=== PATIENT | male | born 1980 | race Caucasian/White ===

== ENCOUNTER 2019-06-30 14:36 | Emergency (ER) | payer OTHER, SELFPAY ==
[2019-06-30 14:42] VITALS: BP 144/76; PULSE 74; RESP 16; TEMP 36.2; O2SAT 99
--- NOTE | 2019-06-30 14:51 | ED.URI ---
HPI - URI/Sore Throat General Chief Complaint: Upper Respiratory Infection Stated Complaint: sore throat/r earache History of Present Illness HPI Narrative: This is a 39 year old male that has had a sore throat for the past week . Patient states that he has had a cough slightly that has went away. Patient denies fever, nausea, shortness of breath Related Data Allergies Allergy/AdvReac Type Severity Reaction Status Date / Time Penicillins Allergy Unknown Rash Verified 05/17/19 10:22 Review of Systems Review of Systems: Narrative: CONSTITUTIONAL: Denies fever, chills, or sweats. EYES: Denies visual changes, redness, or discharge. ENT: Denies rhinorrhea, congestion, positive sore throat, or otalgia. CARDIOVASCULAR:Denies chest pain, palpitations, or edema. RESPIRATORY: Denies cough or dyspnea. GASTROINTESTINAL: Denies abdominal pain, nausea, vomiting, or diarrhea. GENITOURINARY: Denies dysuria or hematuria. SKIN:[Denies rash or itching. MUSCULOSKELETAL:Denies back pain, joint pain, or myalgia. NEUROLOGIC: Denies headache, numbness, or weakness. PSYCHIATRIC:Denies anxiety or depression [facility] Past Medical History Medical History (Updated 06/30/19 @ 15:04 by Dario Wyatt NP) Adhesive capsulitis of right shoulder Muscle spasm of calf Surgical History Surgical History H/O lumpectomy History of appendectomy Social History Social History Smoking status: Never smoker Alcohol intake: current Substance use: unknown Gender identity (if verbalized by the patient): Male Spiritual care concerns: No Comments At time as signature, I have reviewed and agree with nursing past medical, social, surgical and family history. Please see nursing chart for further information. There is no relevant family history pertinent to the presenting complaint. Exam Narrative: Exam Narrative: GENERAL:Well-appearing, well-nourished, and in no acute distress. HEAD:Normocephalic, atraumatic. EYES: PERRLA and EOMI. ENT: Nares clear, no rhinorrhea or epistaxis. Mucous membranes moist. Pharyngeal erythema postnasal drainage copious secretions clear enlarged tonsils NECK: Supple. CHEST: Clear to auscultation. No respiratory distress. HEART: Regular rate and rhythm. No murmur heard. Normal peripheral pulses. ABDOMEN: Soft, nontender, nondistended, normal active bowel sounds. EXTREMITIES: Normal range of motion. No edema. SKIN: Warm, dry, no rash. NEURO: No focal deficits. Alert and oriented x3. Course Vital Signs Vital signs: Vital Signs Temperature 97.1 F L 06/30/19 14:42 Pulse Rate 74 06/30/19 14:42 Respiratory Rate 16 06/30/19 14:42 Blood Pressure 144/76 H 06/30/19 14:42 Pulse Oximetry 99 06/30/19 14:42 Temperature 97.1 F L 06/30/19 14:42 Pulse Rate 74 06/30/19 14:42 Respiratory Rate 16 06/30/19 14:42 Blood Pressure 144/76 H 06/30/19 14:42 Pulse Oximetry 99 06/30/19 14:42 Discharge Plan Discharge Clinical Impression: Acute tonsillitis Patient Disposition: Home, Self-Care Condition: Stable Instructions: Antibiotic Form, Tonsillitis (ED) Additional Instructions: Your strep test today was negative. A throat culture will be sent to the laboratory for further testing. IF the test is positive, you will receive a phone call within 48 hours and an appropriate antibiotic will be initiated at that time. You will not receive a phone call if the test is negative. Until the throat culture proves otherwise, you should proceed with treating this is as a viral pharyngitis. Salt water gargles may alleviate some of your throat discomfort. Take Tylenol and/or ibuprofen per the package instructions for pain/fever. Go to the ER if your symptoms become worse of if ANY new symptoms develop Prescriptions: New cefdinir 300 mg capsule 300 mg PO Q12H 10 Days Qty: 20 RF
== END 2019-06-30 15:08 | disposition home or self-care (01) ==
PROVIDERS: Emergency Provider Nurse Practitioner Family; PCP Emergency Medicine
DX: J03.90 Acute tonsillitis, unspecified (principal)
CPT/HCPCS: 87081; 87880; 99213; G0463

== ENCOUNTER 2019-12-28 07:49 | Emergency (ER) | payer OTHER, SELFPAY ==
--- NOTE | ~2019-12-28 | XR_ITS ---
EXAMINATION: XR femur RT min 2V, XR hip RT 2V w AP pelvis DATE: 12/28/2019 09:05 INDICATION: Right hip and leg pain. TECHNIQUE: Line 1. AP view of the pelvis and AP and frog-leg lateral views of the right hip were obtained. 2. Overlapping proximal and distal, AP and lateral views of the right femur were obtained. COMPARISON: None FINDINGS: Alignment is normal in the pelvis, right hip and knee. No fracture or suspected avascular necrosis. Joint spaces are normal. Incidental bone island at the posterolateral distal metaphysis of the right femur No knee joint effusion. Soft tissues are unremarkable. IMPRESSION: 1. Essentially negative pelvis, right hip and femur radiographs. Reviewed, dictated and finalized at location A. IMPRESSION: 1. Essentially negative pelvis, right hip and femur radiographs.
--- NOTE | ~2019-12-28 | XR_ITS ---
EXAMINATION: XR ankle RT min 3V, XR foot RT min 3V DATE: 12/28/2019 09:05 INDICATION: Right foot and ankle pain and swelling TECHNIQUE: 1. Anteroposterior, mortise, additional oblique and lateral view of the right ankle were obtained. 2. Dorsoplantar, two oblique and lateral views of the right foot were obtained. COMPARISON: None. FINDINGS: Alignment of the foot and ankle is normal. No fracture or osteochondral lesion. Small Achilles calcan eal spur. 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 No cortical erosions. No ank le joint effusion. The soft tissues are unremarkable. IMPRESSION: 1. No acute osseous abnormality at the right foot or ankle. 2. Small Achilles calcaneal spur and minimal osteoarthritis at the first metatarsophalangeal joint. Reviewed, dictated and finalized at location A. IMPRESSION: 1. No acute osseous abnormality at the right foot or ankle. 2. Small Achilles calcaneal spur and minimal osteoarthritis at the first metata rsophalangeal joint.
--- NOTE | ~2019-12-28 | US_ITS ---
US venous doppler LE RT DATE: 12/28/2019 09:15 INDICATION: Pain and swelling of the right leg; the pain radiates to the buttocks. TECHNIQUE: Real-time and color flow imaging and Doppler analysis of the veins of the right lower extr emity COMPARISON: None FINDINGS: The greater saphenous vein is patent. There is spontaneous and phasic flow and normal augme ntation and color flow signal and normal compression of the deep veins of the right lower extremity IMPRESSION: No evidence of deep venous thrombosis of right leg Reviewed, dictated and finalized at Location A. Reviewed, dictated and finalized at location A.
[2019-12-28 07:55] VITALS: BP 149/97; PULSE 72; RESP 18; TEMP 36.9; O2SAT 98
--- NOTE | 2019-12-28 08:06 | ED.LOWEXIN ---
HPI - Extremity Injury (Lower) General Chief Complaint: Extremity Injury, Lower Stated Complaint: foot injury Time Seen by Provider: 12/28/19 08:06 Source: patient Mode of arrival: ambulatory Limitations: no limitations History of Present Illness HPI Narrative: Patient is a 39-year-old male who presents for evaluation of acute on chronic, worsened right anterior foot pain. Patient reports migratory pain in the right anterior foot as well as right thigh pain over the past 5 days. Patient follows with orthopedic surgeon Dr. 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 Dr. Lafleur has proposed a calf release surgery per the patient. This is not been scheduled yet. Patient has been taking anti-inflammatories and tramadol daily without much improvement in the pain. Patient states the pain became acute after seeing Dr. Lafleur and he did not actually have any pain at that office visit. Patient reports his right forefoot appears swollen. He denies any redness or wound. He denies any falls or trauma. No current calf pain. Patient states he came to the emergency department because the thigh pain is a new symptom for him. Patient states the thigh pain begins in his buttocks and travels down the back of his leg into his thigh. Described as sharp and throbbing in nature. Patient states he has no history of sciatica type pain. Related Data Allergies Allergy/AdvReac Type Severity Reaction Status Date / Time Penicillins Allergy Intermediate Rash Verified 12/28/19 08:00 Review of Systems Review of Systems: Narrative: CONSTITUTIONAL: Denies fever CARDIOVASCULAR: Denies chest pain RESPIRATORY: Denies cough or dyspnea. GASTROINTESTINAL: Denies abdominal pain SKIN: Denies rash MUSCULOSKELETAL: Denies back pain, reports right anterior foot pain, right posterior thigh pain NEUROLOGIC: Denies headache PMFSH Past Medical History Medical History Adhesive capsulitis of right shoulder Metatarsalgia of both feet Muscle spasm of calf Surgical History Surgical History H/O lumpectomy History of appendectomy Social History Social History Smoking status: Never smoker Alcohol intake: current Substance use: unknown Gender identity (if verbalized by the patient): Male Spiritual care concerns: No Exam Narrative: Exam Narrative: GENERAL: Awake, alert, conversant HEAD: Normocephalic, atraumatic. EYES: PERRLA and EOMI. ENT: Nares clear, no rhinorrhea or epistaxis. Mucous membranes moist. NECK: Supple. CHEST: No respiratory distress, breathing even and non labored HEART: Regular rate, sinus rhythm ABDOMEN:Non distended, non tender EXTREMITIES: Normal range of motion. No forefoot edema. No pitting edema. No wounds. No streaking erythema to the bilateral feet. DP pulses are 2+ bilaterally with intact sensation. Patient with active flexion and extension of the bilateral ankles without limitation. No ankle edema. No calf tenderness bilaterally. Negative straight leg raise test bilaterally. No reproducible SI joint tenderness. SKIN: Warm, dry, no rash. NEURO:No focal deficits. Alert and oriented x3 Course Vital Signs Vital signs: Vital Signs Temperature 36.9 C 12/28/19 07:55 Pulse Rate 72 12/28/19 07:55 Respiratory Rate 18 12/28/19 07:55 Blood Pressure 149/97 H 12/28/19 07:55 Pulse Oximetry 98 12/28/19 07:55 Temperature 36.9 C 12/28/19 07:55 Pulse Rate 72 12/28/19 07:55 Respiratory Rate 18 12/28/19 07:55 Blood Pressure 149/97 H 12/28/19 07:55 Pulse Oximetry 98 12/28/19 07:55 MDM - Extremity Injury (Lower) MDM Narrative Medical decision making narrative: Patient presents for what appears to be acute on chronic right anterior foot pain, as well as right butto
[2019-12-28 09:23] LABS: Basophils Absolute Auto 0.1 K/mm3 (0.0-0.1); Basophils Percent Auto 1.1 % (0.2-1.2); Eosinophils Absolute Auto 0.2 K/mm3 (0-0.3); Eosinophils Percent Auto 3.1 % (0-4.4); Hematocrit 39.9 % (42.0-52.0); Hemoglobin 13.6 g/dL (14.0-18.0); Immature Granulocyte Absolute 0.01 K/mm3 (0.00-0.031); Immature Granulocyte Percent A 0.2 % (0-0.5); Lymphocytes Absolute Auto 1.48 K/mm3 (0.9-3.2); Lymphocytes Percent Auto 22.6 % (18.3-44.2); Mean Corpuscular HGB Conc 34.1 g/dl (32-36); Mean Corpuscular Volume 85.1 fl (80-100); Mean Platelet Volume 9.6 fl (7.4-10.4); Monocytes Absolute Auto 0.6 K/mm3 (0.1-0.6); Neutrophils Absolute Auto 4.2 K/mm3 (1.3-6.7); Platelet Count Result 188 k/mm3 (150-375); Red Blood Count 4.69 M/mm3 (4.6-6.20); Red Cell Distribution Width 12.6 % (11.5-14.5); White Blood Count 6.5 K/mm3 (4.5-10.0)
[2019-12-28 09:37] LABS: Uric Acid 7.5 mg/dL (3.5-8.5)
[2019-12-28 09:40] LABS: Anion Gap 6 mmol/L (8-16); Blood Urea Nitrogen 16 mg/dL (9-20); CRP 1.1 mg/dL (<1.0); Carbon Dioxide 27 mmol/L (22-30); Chloride 105 mmol/L (98-107); Creatine Kinase 70 U/L (55-170); Estimated CRCL calculation 135 ml/min; Estimated Glomerular Filt Rate > 60; Glucose 100 mg/dL (75-110); Potassium 4.4 mmol/L (3.4-5.0); Sodium 138 mmol/L (137-145)
[2019-12-28 10:14] LABS: Erythrocyte Sedimentation Rate 31 mm/hr (0-20)
[2019-12-28 10:20] VITALS: BP 129/85; PULSE 73; RESP 16; O2SAT 98
== END 2019-12-28 10:23 | disposition home or self-care (01) ==
PROVIDERS: Emergency Provider Emergency Medicine; PCP Emergency Medicine
DX: M79.671 Pain in right foot (principal); M79.651 Pain in right thigh; M77.31 Calcaneal spur, right foot; M19.071 Primary osteoarthritis, right ankle and foot
CPT/HCPCS: 36415; 73502; 73552; 73610; 73630; 80048; 82550; 84550; 85025; 85652; 86140; 93971; 99284

== ENCOUNTER 2020-01-18 08:44 | Emergency (ER) | payer OTHER, SELFPAY ==
--- NOTE | ~2020-01-18 | CT_ITS ---
EXAMINATION: CT brain wo con EXAM DATE: 01/18/2020 09:15 INDICATION: Syncope. More confusion, nausea and vomiting. TECHNIQUE: Spiral CT of the head was performed without contrast. Axial, coronal and sagittal images were reviewed. The dose-length product (DLP) for this examination was 681.00 mGy-cm. The exposure w as tailored according to patient size, and iterative reconstruction (ASIR) was used as additional dos e reduction technique. There is no prior study for comparison. FINDINGS: There is no acute intraparenchymal hemorrhage. No evidence of intraparenchymal brain mass lesion. No evidence of acute infarction. There is no mass effect or midline shift. The ventricles are normal in size. There are no extra-axial collections. There are no acute calvarial fractures. T he orbits are unremarkable. Soft tissue is unremarkable. The visualized sinuses and mastoid air honey ls are well aerated. IMPRESSION: 1. No acute intracranial findings. Reviewed, dictated and finalized at location A.
--- NOTE | ~2020-01-18 | XR_ITS ---
EXAMINATION: XR chest 1V EXAM DATE: 01/18/2020 09:17 INDICATION: Syncope, nausea, dizziness. TECHNIQUE: Portable AP frontal chest x-ray was obtained. Comparison is made to prior examination from 09/09/2014. FINDINGS: The lungs are clear. There are no pleural effusions. The cardiomediastinal silhouette is within normal limits. There is no pneumothorax suspected. The bones and soft tissues are unremarkab le. IMPRESSION: No acute cardiopulmonary findings. Reviewed, dictated and finalized at location A.
--- NOTE | ~2020-01-18 | CT_ITS ---
EXAMINATION: CTA brain carotid EXAM DATE: 01/18/2020 10:57 INDICATION: Aphasia and dizziness. TECHNIQUE: Spiral CTA of the carotid arteries was performed with intravenous injection 100 cc of Om nipaque 350. Axial, coronal, sagittal reformatted images reviewed. Additional reformatted images cre ated on dedicated 3-D workstation. NASCET comparable standard used to assess the degree of arterial stenosis. Spiral CT angiogram cerebral arteries performed with the same intravenous injection of con trast. Source images of the brain CTA transferred to dedicated workstation for 3-D rotational image c reation. Coronal, sagittal maximum intensity pixel images also reviewed. The dose-length product (D LP) for this examination was 1266.70 mGy-cm. The exposure was tailored according to patient size, a nd iterative reconstruction (ASIR) was used as additional dose reduction technique. Correlation is ma de to head CT earlier same date. FINDINGS: There is no carotid plaque or stenosis. The vertebral arteries are codominant. Normal aorti c arch configuration. There is truncated appearance to a single branch of the left middle cerebral ar jeovany trifurcation best identified on the coronal MIP sequence 603, see image 103. Could be acutely oc cluded. There is no carotid or vertebral basilar arterial dissection or fibromuscular dysplasia. Ther e are no cerebral artery aneurysms. The sagittal, transverse and sigmoid sinuses enhance normally, no venous sinus thrombosis. Internal cerebral veins also enhance normally. There is no acute intraparenchymal hemorrhage. No evidence of intraparenchymal brain mass lesion. N o evidence of acute infarction. There is no mass effect or midline shift. There is no obstructive hyd rocephalus suspected. There are no extra-axial collections. There are no calvarial acute fractures. Left upper lobe granuloma. IMPRESSION: 1. Truncation of single left M2 branch, could be acutely occluded. 2. No carotid bulb stenosis. I discussed this case with Yunier Mora DO at 01/18/2020 11:11 CDT. Reviewed, dictated and finalized at location A.
[2020-01-18 08:48] VITALS: BP 150/82; PULSE 88; RESP 18; TEMP 37.4; O2SAT 100
--- NOTE | 2020-01-18 08:53 | ECG_ITS ---
Measurements Intervals [place] Rate: 80 P: 20 [place]: 149 QRS: 12 QRSD: 113 T: 11 QT: 366 QTc: 423 Interpretive Statements SINUS RHYTHM INTRAVENTRICULAR CONDUCTION DELAY DELAYED PRECORDIAL R/S TRANSITION BORDERLINE ECG Electronically Signed On 01-18-2020 11:08:28 CDT by Andreas Steen D.O.
--- NOTE | 2020-01-18 09:02 | ED.NAVMDI ---
HPI - Nausea/Vomiting/Diarrhea General Chief complaint: Nausea/Vomiting/Diarrhea Stated complaint: N/V - foggy mind Time Seen by Provider: 01/18/20 08:46 Source: RN notes reviewed History of Present Illness HPI Narrative: Patient presents emergency department from home for multiple complaints. Patient states that last night starting approximately 8 PM he was eating dinner with his when he is having trouble getting his words out. He states that he felt like he had a hard time getting the words out that he wanted to say. He states that following this he had a near syncopal episode and to felt off . He states that he had gone to bed and got up this morning he states that he got up and was getting ready for work when he had an episode of emesis. He states he had then gone to work and had another near syncopal episode and had felt foggy in his brain. That time he come to the emergency department for further evaluation. Patient currently states that he feels mildly nauseous and states that he feels that he cannot fully concentrate. He denies any fevers or chills vision changes chest pain shortness of breath numbness or weakness of the extremities or any other symptoms. Related Data Allergies Allergy/AdvReac Type Severity Reaction Status Date / Time Penicillins Allergy Intermediate Rash Verified 12/28/19 08:00 Review of Systems Review of Systems: Narrative: Gen.: Denies fevers or chills Eyes: Denies eye pain or visual change ENT: Denies congestion Respiratory: Denies shortness of breath or cough CV: Denies chest pain or palpitations GI: Denies abdominal pain reports nausea vomiting. Denies diarrhea denies burning, urgency, frequency or hematuria Musculoskeletal: Denies back pain or muscle pain Neuro: See HPI Skin: Denies rash Except as documented, all other systems reviewed and negative [facility] Past Medical History Medical History Adhesive capsulitis of right shoulder Metatarsalgia of both feet Muscle spasm of calf Social History Social History Smoking status: Never smoker Alcohol intake: current Substance use: unknown Gender identity (if verbalized by the patient): Male Spiritual care concerns: No Exam Narrative: Exam Narrative: APPEARANCE: No acute distress, nontoxic, resting in bed HEENT: Normocephalic, atraumatic, OMM, TMs clear bilaterally EYES: PERRL, EOMI NECK: Supple, nontender, full range of motion without pain, no meningismus RESPIRATORY: No respiratory distress, clear to auscultation bilaterally with no rhonchi wheezing or rales CARDIOVASCULAR: RRR s murmur ABDOMINAL: Soft, nontender, nondistended MUSCULOSKELETAL: Moves all extremities. No clubbing, cyanosis or edema. NEURO: A and O ?4, following commands, speech normal, cranial nerves II through XII grossly intact,muscle strength 5 out of 5 bilateral upper and lower extremities no pronator drift SKIN:: Warm, dry. Normal Color PSYCHIATRIC: Normal affect/mood Course Course Emergency Course: Following CT of the head discussed with patient need to talk with stroke specialist request Nicky at this time Called and discussed with Dr. Fontaine at [facility] for stroke team. Reviewed the patient's symptoms and Dr. Fontaine personally reviewed CTA. At this time states no acute intervention is indicated at this time states patient may stay at [facility] for MRI and stroke work-up Called and discussed with Dr. Ware presentation work-up. Agrees with consult this time. Request patient receive aspirin 325 at this time Called discussed with [facility] for Dr. Hickey presentation work-up. Agrees with admission at this time Patient's is now present and has talked with and family. At this time they are requesting the patient transferred to [facility] Called and discussed with [facility]
[2020-01-18] MEDS: LACTATED RINGERS 1,000 ML 999 ML IV CONT (09:07)
[2020-01-18] MEDS: ONDANSETRON INJ 4 MG/2 ML VIAL IV PUSH (09:08)
[2020-01-18 09:33] LABS: Basophils Absolute Auto 0.1 K/mm3 (0.0-0.1); Basophils Percent Auto 1.3 % (0.2-1.2); Eosinophils Absolute Auto 0.2 K/mm3 (0-0.3); Eosinophils Percent Auto 2.9 % (0-4.4); Hematocrit 38.3 % (42.0-52.0); Hemoglobin 12.9 g/dL (14.0-18.0); Immature Granulocyte Absolute 0.02 K/mm3 (0.00-0.031); Immature Granulocyte Percent A 0.4 % (0-0.5); Lymphocytes Absolute Auto 1.28 K/mm3 (0.9-3.2); Lymphocytes Percent Auto 23.1 % (18.3-44.2); Mean Corpuscular HGB Conc 33.7 g/dl (32-36); Mean Corpuscular Hemoglobin 29.3 pg (26-34); Mean Platelet Volume 9.8 fl (7.4-10.4); Monocytes Absolute Auto 0.5 K/mm3 (0.1-0.6); Monocytes Percent Auto 9.4 % (2.6-8.5); Neutrophils Absolute Auto 3.5 K/mm3 (1.3-6.7); Neutrophils Percent Auto 62.9 % (45.5-73.1); Platelet Count Result 185 k/mm3 (150-375); Red Cell Distribution Width 12.7 % (11.5-14.5); White Blood Count 5.5 K/mm3 (4.5-10.0)
[2020-01-18 09:35] VITALS: BP 132/85; PULSE 89; RESP 17; O2SAT 99
[2020-01-18 09:42] LABS: Prothrombin Time 12.8 Seconds (11.1-14.7)
[2020-01-18 09:43] LABS: Partial Thromboplastin Time 25.8 SECONDS (22.3-36.8)
[2020-01-18 09:45] LABS: Alanine Aminotransferase 36 U/L (4-50); Albumin Level 4.1 g/dL (3.5-5.1); Alkaline Phosphatase 44 U/L (38-126); Anion Gap 9 mmol/L (8-16); Aspartate Amino Transferase 24 U/L (17-59); Bilirubin,Total 0.3 mg/dL (0.2-1.3); Blood Urea Nitrogen 14 mg/dL (9-20); Calcium 9.3 mg/dL (8.4-10.2); Carbon Dioxide 28 mmol/L (22-30); Chloride 105 mmol/L (98-107); Estimated CRCL calculation 151 ml/min; Estimated Glomerular Filt Rate > 60; Glucose 124 mg/dL (75-110); Lipase 112 U/L (23-300); Potassium 4.4 mmol/L (3.4-5.0); Sodium 142 mmol/L (137-145)
[2020-01-18 10:13] LABS: Add Urine Microscopic? NO; Appearance Urine Clear (Clear); Bilirubin Urine Negative (Negative); Blood Urine Negative (Negative); Color Urine Yellow (Yellow); Glucose Urine UA Negative (Negative); Ketones Urine Negative (Negative); Leukocyte Esterase Ur Negative LEU/UL (Negative); Mucus Urine Rare /lpf; Nitrate Urine Negative (Negative); Protein Urine Negative (Negative); RBC Urine 0-2 /hpf (0-2); Specific Grav Ur 1.016 (1.001-1.035); Urobilinogen Urine Negative mg/dL (<2.0); WBC Urine 0-3 /hpf
[2020-01-18 10:34] VITALS: BP 135/85; PULSE 72; RESP 17; O2SAT 100
[2020-01-18 11:05] LABS: Troponin I < 0.012 ng/mL (0.000-0.034)
[2020-01-18 11:17] VITALS: BP 140/82; PULSE 87; RESP 18; O2SAT 100
[2020-01-18] MEDS: ASPIRIN 81 MG CHEWABLE TABLET 324 MG PO (12:22)
--- NOTE | 2020-01-18 12:40 | PC.NURSE ---
Patient's family member and patient request to be transferred to a [facility] for further evaluation at this time. Patient states I do not want to be admitted here after talking with my family and .
[2020-01-18 12:42] VITALS: BP 144/85; PULSE 85; RESP 18; O2SAT 100
--- NOTE | 2020-01-18 13:18 | PC.NURSE ---
IN ROOM WITH DR ABREU, FAMILY AGAIN REQUESTING WE CONTACT [facility] FOR TRANSFER, THEY DO NOT WANT HIM ADMITTED HERE.
[2020-01-18 13:46] VITALS: BP 138/84; PULSE 79; RESP 17; O2SAT 100
[2020-01-18] MEDS: LACTATED RINGERS 1,000 ML 100 ML IV CONT (13:49)
[2020-01-18] MEDS: CLOPIDOGREL BISULFATE 300 MG TABLET PO (13:49)
--- NOTE | 2020-01-18 14:12 | PC.NURSE ---
Report called to Kiran PERERA at [facility] at this time. Patient going to perfusion therapy first them to room 71
[2020-01-18] MEDS: ONDANSETRON INJ 4 MG/2 ML VIAL (14:38)
--- NOTE | 2020-01-25 07:16 | PC.NURSE ---
LATE ENTRY This note is being entered to document information to the patient's record. The following information was omitted on [01/18/20], by [Deanna Boyer]. Normal Saline stop time 1000.
== END 2020-01-18 14:39 | disposition short-term general hospital (02) ==
PROVIDERS: Emergency Provider Emergency Medicine; PCP Emergency Medicine
DX: I63.9 Cerebral infarction, unspecified (principal); R29.700 NIHSS score 0; I45.9 Conduction disorder, unspecified
CPT/HCPCS: 36415; 70450; 70496; 70498; 71045; 80053; 81003; 83690; 84484; 85025; 85610; 85730; 93005; 96361; 96374; 96376; 99285; A9270; J2405; J7120; Q9967

== ENCOUNTER 2021-08-30 13:22 | Emergency (ER) | payer OTHER, SELFPAY ==
--- NOTE | ~2021-08-30 | XR_ITS ---
XR foot LT min 3V DATE: 08/30/2021 13:51 INDICATION: Fifth metatarsal pain TECHNIQUE: 4 views COMPARISON: 12/19/2019 left foot FINDINGS: There is stable mild cortical irregularity along the proximal posterolateral shaft of the f ifth metatarsal bone which is stable in appearance since 12/19/2019. No fracture or dislocation, periosteal reaction or bone destruction is noted otherwise. Posterior calcaneal enthesopathy. IMPRESSION: Stable cortical irregularity along the proximal posterior lateral shaft of the fifth meta tarsal bone, stable since 12/19/2019 Reviewed, dictated and finalized at location A. IMPRESSION: Stable cortical irregularity along the proximal posterior lateral s haft of the fifth metatarsal bone, stable since 12/19/2019
[2021-08-30 13:26] VITALS: BP 139/84; PULSE 112; RESP 18; TEMP 36.8; O2SAT 97
[2021-08-30] MEDS: HYDROcodone/acetaminophen (*CRX) 5-325 MG TABLET 1 TAB PO (14:14)
--- NOTE | 2021-08-30 14:24 | ED.LOWEXIN ---
HPI - Extremity Injury (Lower) General Chief Complaint: Extremity Injury, Lower Stated Complaint: lower extremity injury Time Seen by Provider: 08/30/21 13:30 History of Present Illness HPI Narrative: Patient is a 41-year-old male who presents ER with left foot pain. Ongoing for 1 week. Started having pain after putting on his foot no work boots. Has pain with bearing weight. Endorses swelling. No redness. No joint pain at the ankle. No calf pain. Due to pain increasing you came in for further evaluation. Related Data Home Medications Medication Instructions Recorded Confirmed atorvastatin 40 mg tablet 40 mg PO DAILY 04/08/20 Allergies Allergy/AdvReac Type Severity Reaction Status Date / Time Penicillins Allergy Intermediate Rash Verified 08/30/21 13:28 Review of Systems Constitutional: Constitutional: Denies chills and Denies fever(s) Musculoskeletal: Musculoskeletal: Denies arthralgias and Denies joint swelling Comments: Left foot swelling and fifth metatarsal pain Integumentary/Breasts: Skin/Breast: Denies pruritus and Denies rash Comments: No cellulitis Neurologic: Denies focal weakness and Denies numbness PMFSH Past Medical History Medical History (Updated 08/30/21 @ 14:33 by Shahzad Lopez MD) Adhesive capsulitis of right shoulder Metatarsalgia of both feet Muscle spasm of calf Surgical History Surgical History (Updated 08/30/21 @ 14:28 by Shahzad Lopez MD) H/O lumpectomy H/O shoulder surgery History of appendectomy Family History Family History (System 04/04/20 @ 08:52 by Marisa Montenegro) Mother Patient's mother is in good health Father Patient's father is in good health Social History Social History Smoking status: Never smoker Alcohol intake: current Alcohol use details: 2 per month Substance use: unknown Gender identity (if verbalized by the patient): Male Spiritual care concerns: No Exam Narrative: GENERAL: Well-appearing, well-nourished, and in no acute distress. HEAD: Normocephalic, atraumatic. HEART: Regular rate and rhythm. Normal peripheral pulses. EXTREMITIES: Normal range of motion. 2+ edema of the left foot. Tender palpation over the midportion of the fifth metatarsal lateral and plantar aspect. No tenderness at the left ankle or calf. SKIN: Warm, dry, no rash. NEURO: No focal deficits. Alert and oriented x3. PSYCH: Normal mood and affect. Course Course Emergency Course: There is a cortical irregularity at the base of fifth metatarsal that has been present since 2019. He may have aggravated this area causing swelling and pain. Will place in postop shoe with weightbearing as tolerated with crutches. Pomaria given here for pain. Vital Signs Vital signs: Vital Signs Temperature 98.2 F 08/30/21 13:26 Pulse Rate 112 H 08/30/21 13:26 Respiratory Rate 18 08/30/21 13:26 Blood Pressure 139/84 08/30/21 13:26 Pulse Oximetry 97 08/30/21 13:26 Temperature 98.2 F 08/30/21 13:26 Pulse Rate 112 H 08/30/21 13:26 Respiratory Rate 18 08/30/21 13:26 Blood Pressure 139/84 08/30/21 13:26 Pulse Oximetry 97 08/30/21 13:26 MDM - Extremity Injury (Lower) Imaging Data Radiologist's impression: ITS Impressions Foot X-Ray 08/30/21 13:57 IMPRESSION: Stable cortical irregularity along the proximal posterior lateral shaft of the fifth metatarsal bone, stable since 12/19/2019 Discharge Plan Discharge Clinical Impression: Metatarsalgia of left foot Patient Disposition: Home, Self-Care Condition: Stable Instructions: Foot Sprain (ED), P.R.I.C.E. Treatment (ED) Additional Instructions: Return the ER if your leg becomes red and hot, you have chest pain or shortness of breath, you have new injury, or have additional concerns. Follow-up with your orthopedic surgeon for further treatment evaluation. Steroid as tolerated with postop shoe
== END 2021-08-30 14:56 | disposition home or self-care (01) ==
PROVIDERS: Emergency Provider Emergency Medicine; PCP Family Medicine Sports Medicine
DX: M77.42 Metatarsalgia, left foot (principal)
CPT/HCPCS: 73630; 99283; A9270

== ENCOUNTER 2022-01-31 14:19 | Emergency (ER) | payer OTHER, SELFPAY ==
--- NOTE | ~2022-01-31 | XR_ITS ---
EXAM: XR lumbar spine min 4V DATE: 01/31/2022 15:21 HISTORY: lower back pain, pain radiates to left hip . COMPARISON: None available. FINDINGS: 5 nonrib-bearing lumbar-type vertebral bodies. Pedicles intact. Normal vertebral body alig nment. Vertebral body heights preserved. Mild degenerative disc disease at L4-5 and L5-S1. Lower lumb ar facet hypertrophy. No pars defect. No fracture or dislocation. IMPRESSION: No acute fracture or traumatic malalignment in the lumbar spine. Reviewed, dictated and finalized at location K.
[2022-01-31 14:32] VITALS: BP 129/68; PULSE 78; RESP 18; TEMP 36.4; O2SAT 97
--- NOTE | 2022-01-31 15:07 | ED.BACK ---
HPI - Back Pain/Injury General Chief Complaint: Back Pain/Injury Stated Complaint: lower back pain Time Seen by Provider: 01/31/22 14:46 Source: patient, RN notes reviewed and old records reviewed Mode of arrival: ambulatory Limitations: no limitations History of Present Illness HPI Narrative: 41-year-old male presents to [facility] with complaints of 8 day history of lower back pain which was on the right side with some radiation of pain down right leg anteriorly to knee. patient reports that pain started after cleaning his house did not do any heavy lifting, 10# weight ball he moved was greatest amount and he mopped his floor. He reports that he went to the chiropractor on Wednesday or Wednesday and was adjusted and given some stretching exercises to do. Patient reports that he has been taking some Ibuprofen and Aleve for his discomfort. Patient reports that his pain is now on the left lower back paraspinal area and radiates to left groin Patient reports that pain increases when changing positions. Patient denies any saddle paraesthesia, no difficulty passing urine or stool. Patient reports that he had MRI in past of unrelated body part that picked up bulging disc in his lower back MD elicited complaint: back pain Onset (ago): day(s) (8 days) Pain scale (0-10): 5 Treatments prior to arrival: NSAIDS and other (stretching and chiropractor) Related Data Home Medications Medication Instructions Recorded Confirmed allopurinol 100 mg tablet 100 mg DAILY 01/31/22 01/31/22 atorvastatin 40 mg tablet 40 mg DAILY 01/31/22 01/31/22 fluoxetine 20 mg capsule 20 mg DAILY 01/31/22 01/31/22 Allergies Allergy/AdvReac Type Severity Reaction Status Date / Time Penicillins Allergy Intermediate Rash Verified 01/31/22 14:59 Review of Systems Review of Systems: CONSTITUTIONAL: Denies fever, chills, or sweats. CARDIOVASCULAR: Denies chest pain, palpitations, or edema. RESPIRATORY: Denies cough or dyspnea. GASTROINTESTINAL: Denies abdominal pain, nausea, vomiting, or diarrhea. GENITOURINARY: Denies dysuria or hematuria. SKIN: Denies rash or itching. MUSCULOSKELETAL: Reports lumbar back pain, left paraspinal tenderness now with radiation to left groin area. No other voiced joint pain or myalgia, initially pain on right lower back till today NEUROLOGIC: Denies headache, numbness, or weakness. All systems reviewed & are unremarkable except as noted in HPI and below PMFSH Past Medical History Medical History (Updated 01/31/22 @ 15:38 by Beverley Garcia NP) Adhesive capsulitis of right shoulder Metatarsalgia of both feet Muscle spasm of calf Surgical History Surgical History (Updated 08/30/21 @ 14:28 by Shahzad Lopez MD) H/O lumpectomy H/O shoulder surgery History of appendectomy Family History Family History (System 04/04/20 @ 08:52 by Marisa Montenegro) Mother Patient's mother is in good health Father Patient's father is in good health Social History Social History Smoking status: Never smoker Alcohol intake: current Alcohol use details: 2 per month Substance use: unknown Gender identity (if verbalized by the patient): Male Spiritual care concerns: No Comments At time of signature, agree with nursing past medical, surgical, social and family history. There is no relevant family history pertinent to the presenting complaint Exam Narrative: GENERAL: Well-appearing, well-nourished, and in no acute distress. HEAD: Normocephalic, atraumatic. EYES: PERRLA and EOMI. NECK: Supple. No lymphadenopathy. CHEST: Clear to auscultation. No respiratory distress. SAO2 97% on room air HEART: Regular rate and rhythm. Distal pulses palpable and equal, cap refill <3 seconds ABDOMEN: Soft, nontender, nondistended, normal active bowel sounds, no palpable or pulsatile masses. No CVA tenderness MUSCULOSKELETAL: Normal range of motion and strength in all extremities
== END 2022-01-31 15:48 | disposition home or self-care (01) ==
PROVIDERS: Emergency Provider Registered Nurse; PCP Family Medicine Sports Medicine
DX: S39.012A Strain of muscle, fascia and tendon of lower back, initial encounter (principal); X58.XXXA Exposure to other specified factors, initial encounter; M54.16 Radiculopathy, lumbar region
CPT/HCPCS: 72110; 99213; G0463